=== PATIENT | male | born 1950 | race Caucasian/White ===

== ENCOUNTER → 2016-11-18 | Outpatient (CLI) | payer MEDICARE | LOC: RAD 10:01 | DX: M17.0 Bilateral primary osteoarthritis of knee (principal) ==

== ENCOUNTER → 2020-10-28 | Outpatient (CLI) | payer MEDICARE ==
[~2020-10-28] MED LIST: ACETAMINOPHEN500 M5 PO; ALLERGY MEDICAT25 MG PO; ASPIRIN E.C. 8181 MG PO; BENADRYL PO; CARVEDILOL12.5 MG PO; CRANBERRY500 M3 PO; EMERGEN-C IMM1000 MG PO; GAS-X EXTRA ST125 MG PO; GLIPIZIDE10 M2 PO; GLUCOSAMINE H1500 MG PO; IMODIUM 2MG CAPS2 MG PO; LASIX80 M1 PO; LISINOPRIL10 MG PO; LUNESTA2 MG PO; MELATIN 3 MG-11 TAB PO; NEURONTIN300 M1 PO; NEXIUM 40MG40 MG PO; NORCO 325 MG-51 TA1 PO; SENNA8.6 M1 PO; VIAGRA100 M1 PO; VITAMIN D3250 MC1 PO; ZANAFLEX CAPSULE2 MG PO; ZYLOPRIM 100MG100 MG PO
[2020-10-28 16:40] LABS: HEMATOCRIT 30.3 % (42.0-52.0); HEMOGLOBIN 9.7 g/dL (13.5-18.0); MEAN PLATELET VOLUME 10.9 fl (7.4-10.4); RED BLOOD COUNT 3.13 M/mm3 (4.20-5.60); RED CELL DISTRIBUTION WIDTH 14.1 % (11.5-14.5); WHITE BLOOD COUNT 8.2 K/mm3 (4.8-10.8)
[2020-10-28 16:45] LABS: POTASSIUM 3.5 mmol/L (3.5-5.1)
[2020-10-28 16:47] LABS: ALBUMIN 3.4 g/dL (3.4-4.8); CALCIUM 9.4 mg/dL (8.3-10.5)
[2020-10-28 16:49] LABS: TOTAL PROTEIN 6.7 g/dL (6.2-8.1)
[2020-10-28 16:51] LABS: TOTAL BILIRUBIN 0.4 mg/dL (0.2-1.2)
== END ==
LOC: LAB 15:38
PROVIDERS: Family Medicine
DX: M79.81 Nontraumatic hematoma of soft tissue (principal)

== ENCOUNTER → 2020-11-04 | Outpatient (CLI) | payer MEDICARE ==
[2020-11-04 16:25] LABS: HEMATOCRIT 29.8 % (42.0-52.0); HEMOGLOBIN 9.3 g/dL (13.5-18.0); MEAN PLATELET VOLUME 11.2 fl (7.4-10.4); RED BLOOD COUNT 2.98 M/mm3 (4.20-5.60); WHITE BLOOD COUNT 8.6 K/mm3 (4.8-10.8)
[2020-11-04 16:58] LABS: ALBUMIN 3.3 g/dL (3.4-4.8)
[2020-11-04 16:59] LABS: CALCIUM 9.2 mg/dL (8.3-10.5)
[2020-11-04 17:00] LABS: TOTAL PROTEIN 6.2 g/dL (6.2-8.1)
[2020-11-04 17:02] LABS: TOTAL BILIRUBIN 0.3 mg/dL (0.2-1.2)
== END ==
LOC: LAB 15:31
PROVIDERS: Family Medicine
DX: M79.81 Nontraumatic hematoma of soft tissue (principal)

== ENCOUNTER 2020-11-07 15:06 | Outpatient (RCR) | payer MEDICARE ==
[2020-10-21 15:22] VITALS: BP 137/71
[2020-10-22 15:07] VITALS: BP 132/74
[2020-10-23 15:59] VITALS: BP 112/68
[2020-10-24 18:04] VITALS: BP 149/76
[2020-10-25 14:50] VITALS: BP 142/79
[2020-10-26 15:19] VITALS: BP 120/68
[2020-10-27 15:05] VITALS: BP 126/66
[2020-10-27 15:45] VITALS: BP 123/67
[2020-10-28 16:00] VITALS: BP 128/84
[2020-10-29 15:17] VITALS: BP 128/68
[2020-10-30 15:10] VITALS: BP 139/71
[2020-10-31 15:22] VITALS: BP 131/72
[2020-11-01 11:47] VITALS: BP 139/73
[2020-11-02 14:53] VITALS: BP 121/69
[2020-11-03 15:10] VITALS: BP 149/78
[2020-11-04 15:44] VITALS: BP 135/65
[2020-11-05 15:07] VITALS: BP 138/67
[2020-11-06 14:45] VITALS: BP 127/71
[~2020-11-07] VITALS: Ht 167.6 cm; Wt 105.5 kg
[2020-11-07 15:30] VITALS: BP 142/57
== END 2020-11-07 17:00 | disposition home or self-care (01) ==
LOC: AMSURD 15:06
DX: M79.81 Nontraumatic hematoma of soft tissue (principal)
CPT/HCPCS: J1335